=== PATIENT | female | born 1950 | race Caucasian/White ===

== ENCOUNTER 2018-02-03 11:50 | Inpatient (IN) | payer OTHER ==
[2018-02-03] VITALS (17 sets, daily range): BP systolic 87–154; BP diastolic 36–88
[~2018-02-03] VITALS: Ht 165.1 cm; Wt 75.9 kg
[~2018-02-03 11:50] MED LIST: ASP81EC PO; CARV6.2551 PO; CETI1TAB36 PO; COCO1000 OR; DOCU-80 PO; HYDR1TAB97 PO; LEVO200T46 PO; LEVO25TA6 PO; LISI10TA6 PO; LORA-654 PO; MUPI2OIN10 TOP; SENN-58 PO; SERT-274 PO; SEVE800T8 PO; TEMA15CA91 PO
[2018-02-03] MEDS ORDERED: ASPirin 81 mg TAB PO ONE (12:00)
[2018-02-03] MEDS ORDERED: IOHEXOL 350 MG/ML 100ML IJ ONE (12:03)
[2018-02-03] MEDS ORDERED: LIDOCAINE 2%HCL (LOCAL ANESTH.) INJ 20ML MDV ONE (12:03)
[2018-02-03 12:11] LABS: Basophils # (auto) 0.2 uL; Basophils % (auto) 0.9 % (0.0-2.0); Eosinophils # (auto) 0.1 uL; Eosinophils % (auto) 0.8 % (0.0-7.0); Hematocrit 30.1 % (36.0-46.0); Lymphocytes # (auto) 2.8 uL; Lymphocytes % (auto) 15.5 % (10.0-50.0); Mean Corpuscular Hemoglobin 30.1 pg (28.0-32.0); Mean Corpuscular Hgb Conc. 33.3 g/dL (32.0-36.0); Mean Corpuscular Volume 90.4 fL (80.0-100.0); Monocytes # (auto) 1.5 uL; Monocytes % (auto) 8.5 % (0.0-12.0); Neutrophils # (auto) 13.5 uL; Neutrophils % (auto) 74.3 % (37.0-80.0); Platelet Count (auto) 269 10^3/uL (140-450); Red Blood Cells 3.33 10^6/uL (4.0-5.20); Red Cell Distribution Width 16.9 % (11.8-14.3); White Blood Cell 18.1 10^3/uL (4.4-10.8)
[2018-02-03] MEDS ORDERED: ANGIOMAX 250 MG VIAL IV ONE (12:20)
[2018-02-03] MEDS ORDERED: SODIUM CHL 0.9% 50 ML ONE (12:20)
[2018-02-03] MEDS ORDERED: IODIXANOL 320MG/ML 100ML BTL IV ONE ×2 (12:23→13:15)
[2018-02-03 12:26] LABS: INR 0.96 (0.9-1.15); Partial Thromboplastin Time 26.9 sec (22.64-33.71); Prothrombin Time 10.5 sec (9.37-12.3)
[2018-02-03] MEDS ORDERED: NOREPINEPHRINE 16 MG/500ML KIT 500 ML IV ONE (12:26)
[2018-02-03 12:41] LABS: Albumin 2.3 g/dL (3.4-5.0); BUN/Creatinine Ratio 3.5; Bilirubin, Total 0.3 mg/dL (0.2-1.0); Magnesium 1.9 mg/dL (1.6-2.6); Potassium 3.1 mmol/L (3.5-5.1); Total Protein 6.6 g/dL (6.4-8.2)
[2018-02-03] MEDS ORDERED: EPINEPHrine HCL 1 MG/1 ML AMP ONE (13:11)
[2018-02-03] MEDS ORDERED: CLOPIDOGREL BISULFATE 75 MG TAB ONE (13:58)
[2018-02-03] MEDS ORDERED: SODIUM CHLORIDE 0.9% 1,000 ML IV SCH (14:01)
[2018-02-03] MEDS ORDERED: ZOLPIDEM TARTRATE 5 MG TAB PO PRN (14:15)
[2018-02-03] MEDS ORDERED: MIDAZOLAM HCL 1MG/1ML-2 ML VIAL ONE (14:35)
[2018-02-03] MEDS: NOREPINEPHRINE 16 MG/500ML KIT 500 ML IV SCH (15:00)
[2018-02-03] MEDS ORDERED: POTASSIUM CHL 20 Meq TABLET PO ONE (15:00)
[2018-02-03] MEDS ORDERED: MORPHINE SULFATE 4 MG/ML SYR/VIAL IV PRN (15:45)
[2018-02-03] MEDS ORDERED: NITROGLYCERIN 0.4 MG SL TAB SL PRN (15:45)
[2018-02-03] MEDS: ONDANSETRON HCL 4 MG/2 ML VIAL IV PRN (19:10)
[2018-02-03] MEDS ORDERED: DEXTROSE (50%) 50ML SYRG IV PRN (21:15)
[2018-02-03] MEDS: SODIUM CHLOR 0.9% PF (SALINE LOCK) 10ML VIAL/SYR IV SCH (22:00)
[2018-02-03] MEDS: ATORVASTATIN 20 MG TAB PO SCH (22:00)
[2018-02-03] MEDS: CARVEDILOL 3.125 MG TAB PO SCH (22:00)
[2018-02-03] MEDS: InsuLIN REG 1unit/0.01ml Soln (100units/ml) SC SCH (23:48)
[2018-02-04] VITALS (92 sets, daily range): BP systolic 70–136; BP diastolic 29–106
[2018-02-04 04:59] LABS: BUN/Creatinine Ratio 3.7; Calcium 7.6 mg/dL (8.5-10.1); Potassium 3.4 mmol/L (3.5-5.1)
[2018-02-04 05:24] LABS: Basophils # (auto) 0.1 uL; Basophils % (auto) 0.5 % (0.0-2.0); Eosinophils # (auto) 0.2 uL; Hematocrit 31.4 % (36.0-46.0); Hemoglobin 10.5 g/dL (12.2-16.2); Lymphocytes # (auto) 1.9 uL; Lymphocytes % (auto) 9.9 % (10.0-50.0); Mean Corpuscular Hemoglobin 30.1 pg (28.0-32.0); Mean Corpuscular Hgb Conc. 33.3 g/dL (32.0-36.0); Mean Corpuscular Volume 90.2 fL (80.0-100.0); Monocytes # (auto) 1.6 uL; Neutrophils # (auto) 15.7 uL; Neutrophils % (auto) 80.6 % (37.0-80.0); Platelet Count (auto) 311 10^3/uL (140-450); Red Blood Cells 3.48 10^6/uL (4.0-5.20); White Blood Cell 19.5 10^3/uL (4.4-10.8)
[2018-02-04] MEDS: InsuLIN REG 1unit/0.01ml Soln (100units/ml) SC SCH ×4 (06:10→23:53)
[2018-02-04] MEDS: ACCU-CHEK COMFORT CURVE STRIP VI SCH ×5 (06:10→23:53)
[2018-02-04] MEDS: SODIUM CHLOR 0.9% PF (SALINE LOCK) 10ML VIAL/SYR IV SCH (06:11)
[2018-02-04] MEDS: LEVOTHYROXINE SODIUM 100 MCG TAB PO SCH (06:11)
[2018-02-04] MEDS ORDERED: POTASSIUM CHL 20 Meq TABLET PO ONE (09:15)
[2018-02-04] MEDS ORDERED: LISINOPRIL 5 MG TAB PO SCH (10:00)
[2018-02-04 10:24] LABS: Lactic Acid w/Reflex 2.2 mmol/L (0.4-2.0)
[2018-02-04] MEDS: SODIUM CHLORIDE 0.9% 1,000 ML IV SCH (10:25)
[2018-02-04] MEDS: CLOPIDOGREL BISULFATE 75 MG TAB PO SCH (10:25)
[2018-02-04] MEDS: ASPirin 81 mg TAB PO SCH (10:25)
[2018-02-04] MEDS: cefTRIAXone 1GM/10ml IVPUSH 10 ML IV SCH (10:25)
[2018-02-04] MEDS: PANTOPRAZOLE 40 MG TAB PO SCH (10:25)
[2018-02-04] MEDS: CARVEDILOL 3.125 MG TAB PO SCH (10:26)
[2018-02-04] MEDS: ACETAMINOPHEN 500 MG TAB PO PRN ×2 (12:15→18:39)
[2018-02-04 12:43] LABS: Urine Bacteria NONE SEEN /hpf (None Seen); Urine Blood 2+ /uL (Negative); Urine Budding Yeast LOADED /hpf (None Seen); Urine Specific Gravity 1.024 (1.001-1.035); Urine WBC 29442 /hpf (0 - 5)
[2018-02-04] MEDS: SERTRALINE HCL 50 MG TAB PO SCH (13:28)
[2018-02-04] MEDS: POTASSIUM CHL 20MEQ/100ML 100 ML IV SCH ×2 (13:28→17:00)
[2018-02-04] MEDS ORDERED: CLOPIDOGREL BISULFATE 75 MG TAB PO ONE (13:45)
[2018-02-04] MEDS: NOREPINEPHRINE 16 MG/500ML KIT 500 ML IV SCH (18:16)
[2018-02-04] MEDS: SEVELAMER 800 MG TAB PO SCH (18:30)
[2018-02-04] MEDS: ATORVASTATIN 20 MG TAB PO SCH (22:14)
[2018-02-04] MEDS: LEVOFLOXACIN 250MG 50 ML IV SCH (22:14)
[2018-02-04] MEDS ORDERED: MICAFUNGIN SODIUM 100 MG in SODIUM CHL 0.9% 100 ML IV SCH (22:15)
[2018-02-04] MEDS: HYDROcodone-ACET 5/325MG TAB PO PRN (23:31)
[2018-02-05] VITALS (82 sets, daily range): BP systolic 84–141; BP diastolic 31–81
[2018-02-05] MEDS ORDERED: MICAFUNGIN SODIUM 100 MG in SODIUM CHL 0.9% 100 ML IV ONE ×2
[2018-02-05] MEDS: SODIUM CHLORIDE 0.9% 1,000 ML IV SCH ×2 (01:55→06:40)
[2018-02-05 03:47] LABS: Basophils # (auto) 0.1 uL; Basophils % (auto) 0.6 % (0.0-2.0); Eosinophils # (auto) 0.2 uL; Eosinophils % (auto) 1.8 % (0.0-7.0); Hematocrit 28.2 % (36.0-46.0); Hemoglobin 9.5 g/dL (12.2-16.2); Lymphocytes # (auto) 2.3 uL; Lymphocytes % (auto) 16.3 % (10.0-50.0); Mean Corpuscular Hemoglobin 30.6 pg (28.0-32.0); Mean Corpuscular Hgb Conc. 33.6 g/dL (32.0-36.0); Mean Corpuscular Volume 91.1 fL (80.0-100.0); Monocytes # (auto) 1.2 uL; Monocytes % (auto) 8.3 % (0.0-12.0); Neutrophils # (auto) 10.2 uL; Platelet Count (auto) 268 10^3/uL (140-450); Red Blood Cells 3.09 10^6/uL (4.0-5.20); Red Cell Distribution Width 17.2 % (11.8-14.3)
[2018-02-05 03:55] LABS: BUN/Creatinine Ratio 4.3; Calcium 7.5 mg/dL (8.5-10.1); Magnesium 1.8 mg/dL (1.6-2.6); Potassium 3.4 mmol/L (3.5-5.1)
[2018-02-05] MEDS: InsuLIN REG 1unit/0.01ml Soln (100units/ml) SC SCH ×4 (06:39→23:45)
[2018-02-05] MEDS: LEVOTHYROXINE SODIUM 100 MCG TAB PO SCH (06:39)
[2018-02-05] MEDS: ACCU-CHEK COMFORT CURVE STRIP VI SCH ×4 (06:39→23:44)
[2018-02-05] MEDS: ONDANSETRON HCL 4 MG/2 ML VIAL IV PRN ×3 (06:51→18:38)
[2018-02-05] MEDS: SEVELAMER 800 MG TAB PO SCH ×3 (08:00→19:03)
[2018-02-05] MEDS: MICAFUNGIN SODIUM 100 MG in SODIUM CHL 0.9% 100 ML IV SCH ×2 (10:00→22:50)
[2018-02-05] MEDS ORDERED: MICAFUNGIN SODIUM 100 MG in SODIUM CHL 0.9% 100 ML IV SCH (10:00)
[2018-02-05] MEDS: SERTRALINE HCL 50 MG TAB PO SCH (10:09)
[2018-02-05] MEDS: PANTOPRAZOLE 40 MG TAB PO SCH (10:09)
[2018-02-05] MEDS: ASPirin 81 mg TAB PO SCH (10:09)
[2018-02-05] MEDS: CLOPIDOGREL BISULFATE 75 MG TAB PO SCH (10:09)
[2018-02-05] MEDS: cefTRIAXone 1GM/10ml IVPUSH 10 ML IV SCH (10:10)
[2018-02-05] MEDS: ACETAMINOPHEN 500 MG TAB PO PRN ×3 (10:13→23:40)
[2018-02-05] MEDS ORDERED: POTASSIUM CHL 20MEQ/100ML 100 ML IV ONE (10:45)
[2018-02-05] MEDS: MAGNESIUM SULFATE 1GM/100ML 100 ML IV SCH ×2 (11:02→12:11)
[2018-02-05] MEDS: NOREPINEPHRINE 16 MG/500ML KIT 500 ML IV SCH (15:44)
[2018-02-05] MEDS: LEVOFLOXACIN 250MG 50 ML IV SCH (21:31)
[2018-02-05] MEDS: ATORVASTATIN 20 MG TAB PO SCH (21:31)
[2018-02-06] VITALS (24 sets, daily range): BP systolic 99–141; BP diastolic 48–86
[2018-02-06 04:20] LABS: Basophils # (auto) 0.1 uL; Basophils % (auto) 0.5 % (0.0-2.0); Eosinophils # (auto) 0.2 uL; Eosinophils % (auto) 1.7 % (0.0-7.0); Hematocrit 27.1 % (36.0-46.0); Hemoglobin 9.3 g/dL (12.2-16.2); Lymphocytes # (auto) 1.3 uL; Lymphocytes % (auto) 10.9 % (10.0-50.0); Mean Corpuscular Hemoglobin 31.2 pg (28.0-32.0); Mean Corpuscular Hgb Conc. 34.4 g/dL (32.0-36.0); Mean Corpuscular Volume 90.6 fL (80.0-100.0); Monocytes # (auto) 0.8 uL; Monocytes % (auto) 6.6 % (0.0-12.0); Neutrophils # (auto) 9.5 uL; Neutrophils % (auto) 80.3 % (37.0-80.0); Platelet Count (auto) 248 10^3/uL (140-450); Red Cell Distribution Width 17.2 % (11.8-14.3); White Blood Cell 11.8 10^3/uL (4.4-10.8)
[2018-02-06 04:30] LABS: Calcium 7.7 mg/dL (8.5-10.1); Magnesium 2.2 mg/dL (1.6-2.6); Potassium 3.7 mmol/L (3.5-5.1)
[2018-02-06 04:32] LABS: BUN/Creatinine Ratio 4.1
[2018-02-06] MEDS: SODIUM CHLORIDE 0.9% 1,000 ML IV SCH ×2 (04:41→23:30)
[2018-02-06] MEDS: InsuLIN REG 1unit/0.01ml Soln (100units/ml) SC SCH ×4 (06:00→23:23)
[2018-02-06] MEDS: ACCU-CHEK COMFORT CURVE STRIP VI SCH ×4 (06:00→23:22)
[2018-02-06] MEDS: LEVOTHYROXINE SODIUM 100 MCG TAB PO SCH (06:51)
[2018-02-06] MEDS: ONDANSETRON HCL 4 MG/2 ML VIAL IV PRN ×3 (06:52→19:57)
[2018-02-06] MEDS: NOREPINEPHRINE 8 MG/250ML KIT 250 ML IV SCH (07:15)
[2018-02-06] MEDS ORDERED: LACTULOSE 20Gm/30ML SOLN PO PRN (08:00)
[2018-02-06] MEDS: ASPirin 81 mg TAB PO SCH (09:06)
[2018-02-06] MEDS: CLOPIDOGREL BISULFATE 75 MG TAB PO SCH (09:06)
[2018-02-06] MEDS: SEVELAMER 800 MG TAB PO SCH ×4 (09:07→18:00)
[2018-02-06] MEDS: cefTRIAXone 1GM/10ml IVPUSH 10 ML IV SCH (09:07)
[2018-02-06] MEDS: POTASSIUM CHL 20MEQ/100ML 100 ML IV SCH ×2 (09:22→13:28)
[2018-02-06] MEDS ORDERED: EPOETIN ALFA 10,000 UNIT/1 ML VIAL SC ONE (10:15)
[2018-02-06] MEDS: SERTRALINE HCL 50 MG TAB PO SCH (10:55)
[2018-02-06] MEDS: PANTOPRAZOLE 40 MG TAB PO SCH (10:55)
[2018-02-06] MEDS: B-COMPLEX W/ C & FOLIC ACID(NEPHROVITE TAB) PO SCH (13:02)
[2018-02-06] MEDS ORDERED: cloNIDine HCL 0.1 MG TAB PO PRN (14:30)
[2018-02-06] MEDS: CARVEDILOL 3.125 MG TAB PO SCH ×2 (15:53→21:47)
[2018-02-06] MEDS: MICAFUNGIN SODIUM 100 MG in SODIUM CHL 0.9% 100 ML IV SCH (21:47)
[2018-02-06] MEDS: LEVOFLOXACIN 250MG 50 ML IV SCH (21:47)
[2018-02-06] MEDS: ATORVASTATIN 20 MG TAB PO SCH (21:48)
[2018-02-06] MEDS: ACETAMINOPHEN 500 MG TAB PO PRN (22:22)
[2018-02-07] MEDS: HYDROcodone-ACET 5/325MG TAB PO PRN ×2 (03:11→10:27)
[2018-02-07 05:31] VITALS: BP 102/66
[2018-02-07 05:51] LABS: Basophils # (auto) 0.1 uL; Basophils % (auto) 0.5 % (0.0-2.0); Eosinophils # (auto) 0.1 uL; Eosinophils % (auto) 0.9 % (0.0-7.0); Hematocrit 27.1 % (36.0-46.0); Hemoglobin 9.1 g/dL (12.2-16.2); Lymphocytes # (auto) 1.2 uL; Lymphocytes % (auto) 8.7 % (10.0-50.0); Mean Corpuscular Hgb Conc. 33.7 g/dL (32.0-36.0); Monocytes % (auto) 7.7 % (0.0-12.0); Neutrophils # (auto) 11.1 uL; Neutrophils % (auto) 82.2 % (37.0-80.0); Platelet Count (auto) 241 10^3/uL (140-450); Red Blood Cells 2.94 10^6/uL (4.0-5.20); Red Cell Distribution Width 17.1 % (11.8-14.3); White Blood Cell 13.5 10^3/uL (4.4-10.8)
[2018-02-07] MEDS: InsuLIN REG 1unit/0.01ml Soln (100units/ml) SC SCH ×3 (06:00→18:00)
[2018-02-07] MEDS: ACCU-CHEK COMFORT CURVE STRIP VI SCH ×3 (06:01→18:00)
[2018-02-07 06:13] LABS: Albumin 1.9 g/dL (3.4-5.0); BUN/Creatinine Ratio 3.5; Bilirubin, Total 0.2 mg/dL (0.2-1.0); Calcium 7.8 mg/dL (8.5-10.1); Magnesium 2.1 mg/dL (1.6-2.6); Phosphorus 3.4 mg/dL (2.5-4.90); Total Protein 6.4 g/dL (6.4-8.2)
[2018-02-07] MEDS: LEVOTHYROXINE SODIUM 100 MCG TAB PO SCH (06:31)
[2018-02-07] MEDS: NOREPINEPHRINE 8 MG/250ML KIT 250 ML IV SCH (07:15)
[2018-02-07 08:00] VITALS: BP 92/52
[2018-02-07] MEDS: SEVELAMER 800 MG TAB PO SCH ×3 (08:00→18:00)
[2018-02-07] MEDS: SERTRALINE HCL 50 MG TAB PO SCH (10:28)
[2018-02-07] MEDS: PANTOPRAZOLE 40 MG TAB PO SCH (10:28)
[2018-02-07] MEDS: B-COMPLEX W/ C & FOLIC ACID(NEPHROVITE TAB) PO SCH (10:28)
[2018-02-07] MEDS: CLOPIDOGREL BISULFATE 75 MG TAB PO SCH (10:28)
[2018-02-07] MEDS: ASPirin 81 mg TAB PO SCH (10:29)
[2018-02-07] MEDS: CARVEDILOL 3.125 MG TAB PO SCH (10:29)
[2018-02-07] MEDS: cefTRIAXone 1GM/10ml IVPUSH 10 ML IV SCH (10:30)
[2018-02-07 13:00] VITALS: BP 118/73
[2018-02-07 17:32] VITALS: BP 110/70
[2018-02-07 18:07] VITALS: BP 110/70
[2018-02-07 18:36] VITALS: BP 110/70
[2018-02-07] MEDS ORDERED: PRO-STAT 64 30ML GT SCH (22:00)
== END 2018-02-07 18:34 | disposition home or self-care (01) | DRG 853 ==
LOC: EDBD 11:50 → ER 11:56 → CATH 1 12:10 → ICU WEST 12:11 → TELE-EAST 02-06 17:34
PROVIDERS: ADMIT Internal Medicine Cardiovascular Disease; ATTEND Family Medicine
PROC: B2111ZZ Fluoroscopy of Multiple Coronary Arteries using Low Osmolar Contrast (ICD-10-PCS; 2018-02-03)
PROC: B2151ZZ Fluoroscopy of Left Heart using Low Osmolar Contrast (ICD-10-PCS; 2018-02-03)
PROC: 0BH17EZ Insertion of Endotracheal Airway into Trachea, Via Natural or Artificial Opening (ICD-10-PCS; 2018-02-03)
PROC: 5A1935Z Respiratory Ventilation, Less than 24 Consecutive Hours (ICD-10-PCS; principal; 2018-02-04)
PROC: 4A023N7 Measurement of Cardiac Sampling and Pressure, Left Heart, Percutaneous Approach (ICD-10-PCS; 2018-02-04)
PROC: 027135Z Dilation of Coronary Artery, Two Arteries with Two Drug-eluting Intraluminal Devices, Percutaneous Approach (ICD-10-PCS; 2018-02-04)
DX: A41.9 Sepsis, unspecified organism (principal); I21.3 ST elevation (STEMI) myocardial infarction of unspecified site; R57.0 Cardiogenic shock; I13.2 Hypertensive heart and chronic kidney disease with heart failure and with stage 5 chronic kidney disease, or end stage renal disease; N18.6 End stage renal disease; E11.22 Type 2 diabetes mellitus with diabetic chronic kidney disease; I42.9 Cardiomyopathy, unspecified; E87.1 Hypo-osmolality and hyponatremia; N39.0 Urinary tract infection, site not specified; E11.51 Type 2 diabetes mellitus with diabetic peripheral angiopathy without gangrene; J44.9 Chronic obstructive pulmonary disease, unspecified; I50.9 Heart failure, unspecified; E87.6 Hypokalemia; E78.5 Hyperlipidemia, unspecified; D63.8 Anemia in other chronic diseases classified elsewhere; E03.9 Hypothyroidism, unspecified; N18.9 Chronic kidney disease, unspecified; G89.4 Chronic pain syndrome; I25.10 Atherosclerotic heart disease of native coronary artery without angina pectoris; Z80.0 Family history of malignant neoplasm of digestive organs; Z83.3 Family history of diabetes mellitus; Z85.41 Personal history of malignant neoplasm of cervix uteri; Z87.891 Personal history of nicotine dependence; Z89.431 Acquired absence of right foot; Z90.710 Acquired absence of both cervix and uterus; Z99.2 Dependence on renal dialysis; Z90.89 Acquired absence of other organs
CPT/HCPCS: 36415; 71045; 80048; 80053; 81001; 82962; 83605; 83735; 84100; 84484; 85025; 85610; 85730; 87040; 87081; 92928; 93005; 93458; 99152; 99153; 99291; C1874; J0171; J0885; J1815; J2248; J2250; J2405; J3480; Q9967